=== PATIENT | female | born 1980 | race Caucasian/White ===

== ENCOUNTER 2019-09-28 06:44 | Emergency (ER) | payer SELFPAY ==
[~2019-09-28] VITALS: Ht 157.5 cm; Wt 64.9 kg
[2019-09-28 06:55] VITALS: BP 139/88
[2019-09-28 07:39] LABS: Basophils # (auto) 0 10 ^3/uL (0-0.2); Basophils % (auto) 0.3 % (0.0-2.0); Eosinophils # (auto) 0.2 10 ^3/uL (0-0.8); Eosinophils % (auto) 3.2 % (0.0-7.0); Hematocrit 43.4 % (36.0-46.0); Hemoglobin 14.9 g/dL (12.2-16.2); Lymphocytes # (auto) 1.7 10 ^3/uL (0.4-5.4); Mean Corpuscular Hemoglobin 31.9 pg (28.0-32.0); Mean Corpuscular Hgb Conc. 34.3 g/dL (32.0-36.0); Mean Corpuscular Volume 93.1 fL (80.0-100.0); Monocytes # (auto) 0.5 10 ^3/uL (0-1.3); Monocytes % (auto) 7.6 % (0.0-12.0); Neutrophils # (auto) 4.4 10 ^3/uL (1.6-8.6); Neutrophils % (auto) 63.9 % (37.0-80.0); Platelet Count (auto) 168 10^3/uL (140-450); Red Blood Cells 4.66 10^6/uL (4.0-5.20); Red Cell Distribution Width 12.5 % (11.8-14.3); White Blood Cell 6.9 10^3/uL (4.4-10.8)
[2019-09-28 08:02] LABS: Albumin 3.5 g/dL (3.4-5.0); BUN/Creatinine Ratio 18.1; Calcium 8.1 mg/dL (8.5-10.1); Potassium 3.8 mmol/L (3.5-5.1)
[2019-09-28 08:04] LABS: Bilirubin, Total 0.5 mg/dL (0.2-1.0); Total Protein 7.2 g/dL (6.4-8.2)
== END 2019-09-28 10:09 | disposition left against medical advice (07) ==
LOC: ER 06:44
DX: R07.89 Other chest pain (principal); Z53.21 Procedure and treatment not carried out due to patient leaving prior to being seen by health care provider
CPT/HCPCS: 36415; 80053; 82728; 83605; 85025; 87040; 87070; 87804; 87880; C9803; U0003

== ENCOUNTER 2020-06-10 19:27 | Emergency (ER) | payer SELFPAY ==
[~2020-06-10] VITALS: Ht 157.5 cm; Wt 61.2 kg
[2020-06-11] MEDS ORDERED: ACETAMINOPHEN 325 MG TAB PO ONE
[2020-06-11] MEDS ORDERED: cefTRIAXone SOD 1,000 MG VL IM ONE
[2020-06-11] MEDS ORDERED: methylPREDNISolone SOD SUCC 125 MG/2 ML VL IM ONE
[2020-06-11 00:39] VITALS: BP 135/98
== END 2020-06-11 00:40 | disposition home or self-care (01) ==
LOC: ER 19:27
DX: J02.9 Acute pharyngitis, unspecified (principal); F15.10 Other stimulant abuse, uncomplicated
CPT/HCPCS: 96372; 99284; J0696; J2930

== ENCOUNTER 2023-03-22 03:13 | Emergency (ER) | payer MEDICAID ==
[~2023-03-22] VITALS: Ht 154.9 cm; Wt 69.7 kg
[2023-03-22] MEDS ORDERED: ALBUAER3 IN (07:43)
[2023-03-22] MEDS ORDERED: METH4PAK PO (07:43)
[2023-03-22] MEDS ORDERED: BENZ100C97 PO (07:43)
[2023-03-22] MEDS ORDERED: PROM1SOL4 PO (07:43)
[2023-03-22 07:44] VITALS: BP 144/91; PULSE 98; RESP 20; TEMP 98.6; O2SAT 99
== END 2023-03-22 07:44 | disposition home or self-care (01) ==
LOC: ER 03:13
DX: J40 Bronchitis, not specified as acute or chronic (principal); F15.90 Other stimulant use, unspecified, uncomplicated
CPT/HCPCS: 71045